=== PATIENT | male | born 1995 | race Caucasian/White ===

== ENCOUNTER 2019-04-01 13:12 | Emergency (ER) | payer SELFPAY ==
--- NOTE | 2019-04-01 14:01 | RAD ---
RIGHT FOOT 3 VIEWS: Date: 04/01/19 HISTORY: Fall with injury to right foot. COMPARISON: 10/27/13. FINDINGS: Tarsals unremarkable. Metatarsals and phalanges unremarkable. MTP and IP joints unremarkable. IMPRESSION: No acute abnormality. No interval change from prior exam. POS: [facility]
== END 2019-04-01 13:54 | disposition home or self-care (01) ==
LOC: SCSER 13:12
DX: S93.601A Unspecified sprain of right foot, initial encounter (principal); G43.909 Migraine, unspecified, not intractable, without status migrainosus; W10.9XXA Fall (on) (from) unspecified stairs and steps, initial encounter

== ENCOUNTER 2019-06-05 04:24 | Emergency (ER) | payer SELFPAY ==
[2019-06-05] MEDS ORDERED: Lidocaine 1% w/Epinephrine 1:100K 20 ML VIAL ONE (04:56)
--- NOTE | 2019-06-05 09:19 | RAD ---
THREE VIEWS RIGHT HAND: INDICATION: Fall with injury and pain. COMPARISON: Reference is made to 04/29/2015. FINDINGS: There is an intraarticular mildly displaced avulsive-type fracture involving the medial base of the 2 nd digit proximal phalanx. Minimal approximately 1 mm intraarticular gap is present. IMPRESSION: Intraarticular avulsion fracture involving medial base of the 2nd digit proximal phalanx. POS: [facility]
--- NOTE | 2019-06-05 09:29 | RAD ---
LEFT FOOT 3 VIEWS: INDICATION: Injury. FINDINGS: There is a fracture lucency transversely oriented at the 5th metatarsal base. There is overlying sof t tissue prominence. IMPRESSION: Fracture involving the 5th metatarsal base. POS: [facility]
== END 2019-06-05 06:04 | disposition home or self-care (01) ==
LOC: SCSER 04:24
DX: S62.610A Displaced fracture of proximal phalanx of right index finger, initial encounter for closed fracture (principal); S92.352A Displaced fracture of fifth metatarsal bone, left foot, initial encounter for closed fracture; S01.511A Laceration without foreign body of lip, initial encounter; G43.909 Migraine, unspecified, not intractable, without status migrainosus; Y04.2XXA Assault by strike against or bumped into by another person, initial encounter
CPT/HCPCS: 12011; 29125